=== PATIENT | female | born 1955 | race Caucasian/White ===

== ENCOUNTER 2021-08-16 16:37 | Inpatient (IN) | payer OTHER ==
[~2021-08-16] VITALS: Ht 167.6 cm; Wt 122.9 kg
[2021-08-17 20:45] VITALS: BP 133/80
--- NOTE | 2021-08-17 21:48 | NUR ---
Pt admitted to unit from ED at 1999 this shift. Pt was brought to unit on a gurney and ambulated with assistance from gurney to bed. Pt ambulates ad baldemar but states that she usually uses a walker. Pt is being involuntarily admitted to unit for bipolar with sam without psychotic features. Documentation filed et pt was given a copy of Notice of Rights of Involuntary Patient which was placed in her new admission folder after her rights were read to her verbatim. Pt is ambulatory, continent of bowel et bladder, et oriented X3 at present time. Pt denies SI/HI at present time. Pt states that she has to have her cell phone so that she can call her fiance in [place] to discuss the detective investigator that they have hired. Pt was informed that she would not be allowed to have her cell phone while on the unit. VSWNL. Health assessment with no abnormalities noted at present time. Hospitalist SHEEP FARMER notified of pt admission to unit via message left on voicemail. Psych SHEEP FARMER notified of pt admission to unit, orders received, et entered into system. Pt currently socializing with peers in dayroom watching TV. Will continue to monitor per unit protocol.
[2021-08-18 02:46] LABS: CHOLESTEROL 135 mg/dL (<200); HDL CHOLESTEROL 49 mg/dL (>40); LDL CHOLESTEROL 64 mg/dL (<100); TC:HDL 2.8 Ratio (Not establshd); TRIGLYCERIDE 111 mg/dL (<150); VLDL 22 mg/dL (<40)
[2021-08-18 03:09] LABS: SERUM ASSESSMENT Clear
--- NOTE | 2021-08-18 05:31 | NUR ---
Pt continues to have various somatic complaints. Pt states that she was in hospital in [facility] for a heart attack et c/o chest pain several times during shift. VSWNL. Blood pressure stable et WNL. Informed pt that VSWNL et cardiac auscultation reveals no anomalies present. Informed pt that hospital record review reveals that cardiac stress test was found to be normal et no sign of heart attack was found in records. Pt was incredulous that her "heart attack" was not in her records. Pt states that she was told that she had a heart attack. Pt also states that she has various spinal fractures that cause her severe pain et wants to discuss narcotic pain relievers with physician. Pt questioned why she was being placed on a psychiatric hold et this nurse explained that she has been deemed a danger to herself due to delusional thought process of fiance being a "seal" and part of the team that "captured [employer]". Pt was told that records showed that she had also expressed that she had told hospital staff that she had a 4 month old child that she had to get home to. Pt denies all statements at this time. Reassured pt that she would have a chance to discuss her case with the physician when she was assessed on Thursday. Pt verbalized understanding of her rights. Will continue to monitor per unit protocol.
[2021-08-18 10:30] VITALS: BP 133/80
[2021-08-18 10:57] LABS: HEMATOCRIT 37.2 % (37.0-47.0); HEMOGLOBIN 12.5 gm/dL (12.0-15.0); MCH 31.3 pg (26.0-34.0); MCHC 33.7 g/dL (28.0-37.0); RDW 13.5 % (10.5-14.5); WBC 6.9 thou/uL (4.0-11.0)
[2021-08-18 11:26] LABS: CALCIUM 9.2 mg/dL (8.5-10.1); POTASSIUM 3.7 mmol/L (3.5-5.1)
--- NOTE | 2021-08-18 12:53 | NUR ---
PATIENT CARE ASSUMED AT 0700 - MET WITH NURSE PRACTIONER EARLIER IN HER ROOM. ACKNOWLEDGED PATIENT ONCE IN DINING VELAZQUEZ. PATIET ADVISED PEER SHE HAD BEEN HERE SIX MONTH WHEN QUESTIONED. ADVISED PATIENT SHE ONLY ARRIVED NIGHT BEFORE TO OUR FACILITY. " LAUGHED AND STATED " OH I THOUGHT SHE MEANT IN [place], WHERE I LIVED." PATIENT PROCEEDED TO ADVISE THIS HAND CLOTH EXAMINER OF HER MULTIPLE FRACTURES IN HER SPINE, SPINAL STENOSIS, HEART ATTACK AND ARTHRITIC PAIN ALL OVER HER BODY. STATED TYLENOL INEFFECTIVE - DR. REDDY WAS HERE AND SPOKE WITH PATIENT WELL AND ADVISED WOULD TRY ONE TIME DOSE OF PERCOCET. EXPLAINED THAT DR. PARKER WOULD HAVE TO ADDRESS HER PAIN MEDICATIONS AND DISCUSS WHEN THEY MEET. PATIENT VITALS WNL. APPLIED LIDODERME PATCH TO BACK AT 1300 AND GIVEN OXYCODONE - APAP 7.5-325 ONETIME DOSE TABLET ORDERED BY DR. REDDY. PATIENT HAS BEEN UP IN DINING VELAZQUEZ. DISATISFIED WITH MEALS OFFERED DUE TO CARB CONTROL DIET. PATIENT PARTICIPATED IN GROUP ACTIVITY. HAS HAD BACK DISCOMFORT MOST OF THE MORNING. WILL CONTINUE TO MONITOR PATIENT FOR SAFETY AND ADDRESS ANY CONCERNS OR NEEDS ACCORDINGLY.
[2021-08-18 19:33] VITALS: BP 145/85
[2021-08-18 20:20] VITALS: BP 145/85
--- NOTE | 2021-08-18 21:51 | NUR ---
PATIENT SAT OUT IN DINING ROOM THIS EVENING VISITING WITH OTHER FEMALE PATIENTS. SHE WAS CALM AND COOPERATIVE. SHE DID NOT SEEM TO BE IN PAIN AND WAS LAUGHING AND SMILING. WHEN ASKED IF SHE WAS HAVING ANY PAIN SHE THEN BEGAN WITH BACK PAIN AND THEN C/O PAIN THROUGHOUT HER BODY. ONE PATIENT EVEN MENTIONED"I DID NOT KNOW YOU HAD PAIN ISSUES. YOU NEVER COMPLAIN ABOUT IT AT ALL." PATIENT IS USED TO TAKING PERCOCET FOR HER PAIN AND IT HAS NOT BEEN PRESCRIBED HERE. SHE WAS GIVEN TYLENOL 650MG PO AT THIS TIME D/T TOO EARLY TO GIVE HER IBUPROFEN. PATIENT HAD HS SNACK OF ICECREAM TONIGHT. HER GLUCOSE WAS 125. NO INSULIN GIVEN. PATIENT WAS UP WITH WALKER AND WENT TO BED ON HER OWN. SHE IS INDEPENDENT WITH CARES. DENIES SI/HI/AVH. SHE DOES LIKE TO TALK AND BE THE LIFE OF THE CONSTITUTION PARTY. SHE WAS TRYING TO ANSWER FOR OTHER PATIENTS WHEN THEY WERE ASKED QUESTIONS. SHE WOULD ALSO DIRECT PATIENTS TO TELL THIS NURSE THINGS THAT SHE WAS TOLD BY THEM, IN WHICH THEY SAID WAS NOTHING OR DID NOT WISH TO SHARE AGAIN. PT IN ROOM RESTING AT THIS TIME. ROUTINE ROUNDS TO ASSESS SAFETY AND STATUS OF PATIENT.
[2021-08-19 03:05] LABS: GLYCOHEMOGLOBIN (HGB A1C) 5.8 % (4.8-5.6)
[2021-08-19 09:34] VITALS: BP 125/72
--- NOTE | 2021-08-19 11:26 | NUR ---
DID WITHDRAW TO ROOM SHORTLY AFTER COMPLETION OF AM GROUP WITH REPORTED LOW BACK PAIN RATED A 8-9 ON NUMERIC SCALE. IS NOTED TO BE GRIMACING WITH MOVEMEMENT AND RUCCING LOW BACK. STATES SHE TAKES PERCOCET AT HOME BUT MD HERE WON'T ORDER IT. DID COMLY WITH LIDIDERM PATCH AND IBUPROFEN ADMINISTERED AT 1100-600MG PO PRN WITH NO RELEIF REPORTED-BACK PAIN CONTINUES TO BE A 8 ON 1-10 SCALE. APPETIE IS GOOD. TAKES MES WELL. GAIT STEADY WITH ASSISTIVE DEVICES. NO DELUSIONAL STATEMENTS NOTED OR REPORTED. NO A/V HALLUCINATIONS NOTED/REPORTED
--- NOTE | 2021-08-19 13:23 | NUR ---
New admit to [facility] with bipolar and sam, psychosis. Hx DM, and currently on lipitor, insulin, MVI, cholecalcipherol, calcium carbonate, and vitamin C. Carb control diet order, A1C is wnl, as well as lipids. Vitamin D level pending. Eating 75-100% meals, wt extreme class III obesity, BMI 43.8. Attempted interview however pt in group session at this time. Documentation notes reviewed and notes of pt not liking carb controlled diet and has verbalized wt gain. Will follow up at later date speak with pt when available. Otherwise presents low nutrition risk
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
--- NOTE | 2021-08-19 17:40 | NUR ---
DOES REPORT IMPROVEMENT IN LOW BACK PAIN AFTER ADMINISTRATION OF PRN PERCOCET 2 TABS AT 1450-STATES PAIN WENT FROM A 9 TO "ABOUT O 30R4" AT 1600. HAS BEEN VISIBLE IM DAYROOM INTERACTING WITH FEMALE PEER AND ATTENDING SCHEDULED GROUPS. DR CHEUNG CONTACTED AND 0RDER RECEOVED TO DC ACCUCHECKS PER PT REQUEST - INFORMED OF HGBAIC IN ADDITION TO RECENT POC GLUCOSE SINCE ADMIT
--- NOTE | 2021-08-19 17:46 | NUR ---
YASMANI and Dr. Gibbs met with the Pt. Pt was oriented x4, denied SI/HI, denied VH/AH. Pt had concerns about pain management medications. 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 It was agreed that Pt would discharge on 08/20/2021. The Pt stated she is willing to participate in outpatient mental health services with [facility]. Pt reported completing an intake appointment with [facility] some time back. Pt again stated she would like an appointment with Dr. Irma Glasgow. Pt had no other concerns during this meeting. YASMANI was able to get the Pt an appointment at [facility] with Dr. Peggy Glass for psychiatriy 10/02/2021 @ 4300. YASMANI attempted to schedule an appointment with Dr. Glasgow. Dr. Glasgow's office informed the Pt had been flagged and the doctor will not see this Pt. YASMANI informed Pt of this information and offered to schedule with a different clinic. Pt refused stating she would like to call Dr. Glasgow's office concerning the matter. YASMANI provide Pt with the phone number to call. Pt will discharge home 08/20/2021 @1300 via taxi
[2021-08-19 19:50] VITALS: BP 142/78
[2021-08-19 20:10] VITALS: BP 142/78
--- NOTE | 2021-08-19 22:05 | NUR ---
PATIENT HAS BEEN SITTING IN THE DINING ROOM WATCHING TV AND VISITING WITH OTHER FEMALE PATIENTS. SHE HAS BEEN LESS INTRUSIVE IN CONVERSATION AND HAS BEEN MORE APPROPRIATED TONIGHT. SHE HAS TAKEN HER MEDS WHOLE WITH WATER AND HAD PERCOCET FOR BACK PAIN. SHE STATES THAT SHE FEELS SHE IS NOT WALKING WELL SHE DID WHEN SHE CAME IN AND FEELS MORE STIFF. ENCOURAGED HER TO TRY AND WALK THE HALLS MORE. EXPLAINED SHE HAS BEEN SITTING ALOT SINCE SHE HAS BEEN HERE AND IT WILL TAKE TIME TO REBUILD HER STAMINA. SHE HAD HS SNACK. PATIENT DENIES SI/HI/AVH. ROUTINE ROUNDS TO ASSESS SAFETY AND STATUS OF PATIENT.
--- NOTE | 2021-08-20 05:08 | NUR ---
PATIENT AWOKE AND REQUESTED MED FOR SLEEP. SHE REQUESTED CLONAZEPAM 1MG PO AND I ALSO GAVE HER TYLENOL 65O MG PO TO HELP HER REST EASIER AND CALM ANY GENERAL ACHES. SHE DENIES PAIN. PATIENT STILL UNABLE TO SLEEP MUCH. SHE IS DISCHARGING TODAY AND I THINK SHE IS EXCITED ABOUT GOING HOME. PATIENT WAS SWABBED FOR COVID 19 PCR LABWORK THIS MORNING. CONTINUING TO MONITOR.
[2021-08-20 07:00] VITALS: BP 118/66
[2021-08-20] MEDS ORDERED: CLARITIN10 M2 PO (09:16)
[2021-08-20] MEDS ORDERED: LIPITOR 20 MG T20 M1 PO (09:17)
[2021-08-20] MEDS ORDERED: NICOTINE1 EACH TRANSDERM (09:17)
[2021-08-20] MEDS ORDERED: CALAN SR240 MG PO (09:18)
[2021-08-20] MEDS ORDERED: PERCOCET PO (09:19)
[2021-08-20] MEDS ORDERED: TRAZODONE HCL50 MG PO (09:20)
[2021-08-20] MEDS ORDERED: NEURONTIN 400M400 M2 PO (09:20)
[2021-08-20] MEDS ORDERED: CALTRATE-600 W1 EACH PO (09:21)
[2021-08-20] MEDS ORDERED: PEPCID20 MG PO (09:21)
[2021-08-20] MEDS ORDERED: CARAFATE 1 GM TA1 G1 PO (09:22)
[2021-08-20] MEDS ORDERED: VITAMIN C250 MG PO (09:25)
[2021-08-20] MEDS ORDERED: SYNTHROID100 MC1 PO (09:25)
[2021-08-20] MEDS ORDERED: A THRU Z ADVAN1 EAC1 PO (09:27)
[2021-08-20] MEDS ORDERED: VITAMIN D325 MC2 PO (09:27)
[2021-08-20] MEDS ORDERED: MELATONIN5 M1 PO (09:29)
[2021-08-20] MEDS ORDERED: PT HOME MEDICATION MISCELL (09:29)
[2021-08-20 10:00] VITALS: BP 118/66
[2021-08-20 12:27] VITALS: BP 118/66
--- NOTE | 2021-08-20 13:12 | NUR ---
PATIENT DISCHARGED AT 12:55 - ALL BELONGINGS REVIEWED AND ACCOUNTED FOR BOTH FROM UNIT AND SECURITY INTAKE. PATIENT HAD ALL HER MORNING MEDICATIONS AND WAS ALERT AND ORIENTED X 4 ON DISCHARGE. TRANSPORTED BY CAB TO HOME ADDRESS. PAPERWORK REVIEWED WITH PATIENT AND ESCORTED DOWN BY STAFF BY WHEELCHAIR.
--- NOTE | 2021-08-22 22:28 | D ---
[facility] [place] [address] DISCHARGE SUMMARY Name: VANESSA CRUZ CHINMAY Room #: 527B-B [facility] IN M.R.#: [id number] Admission: 08/17/21 Attend Phys: Buddy Colin DO Discharge: 08/20/21 Date of : 55 Report #: [id number] THIS REPORT FOR: cc: FAM - Family physician unknown FAM - Family physician unknown Buddy Colin DO ~ DATE OF SERVICE: 08/20/2021 INPATIENT PSYCHIATRIC DISCHARGE SUMMARY ATTENDING PSYCHIATRIST: Buddy Colin D.O. [facility]: Edgard Liu M.D. DISCHARGE DIAGNOSIS: Unspecified psychosis, resolved. No indication for antipsychotic therapy. MEDICAL COMORBIDITIES: Include morbid obesity, osteoarthritic pain requiring narcotic therapy, hypertension, hypothyroidism. She does have an abnormally low TSH, but free T4 is normal. Recheck TSH in 6 weeks. History of diabetes mellitus type 2, but her sugars are euglycemic this admission, hyperlipidemia. The patient is discharging to her friend's or roommate's home where she is her caregiver in exchange for having a place to live. The patient does not need to establish psychiatric care, but if she feels necessary in the future, being established with [facility] would be appropriate. Restart for outpatient care. The patient states aftercare problems where she does not have a primary care physician. She had two different practices. She requested referral to a PCP who was unwilling to accept her. It was suggested that the patient establish with [facility], which is near where she lives. Diet: Heart Healthy activity level as tolerated, no alcohol, no illicit drugs DISCHARGE MEDICATIONS: The patient is being discharged on a strictly limited prescription of narcotics that is #30 5/325 Percocets. Additional medications are trazodone 150 mg at bedtime for sleep, famotidine 20 mg daily for GERD, atorvastatin 20 mg oral daily for hyperlipidemia. She is also on verapamil 240 mg daily for hypertension 30-day script given and gabapentin 800 mg 3 times a day for pain, 1000 International Units daily of vitamin D, calcium carbonate 500 mg daily, vitamin C 250 mg daily, Carafate 1 g a.c. and at bedtime gave her a 14-day prescription for this and levothyroxine currently 300 mcg daily. LABORATORY DATA: Significant laboratories on this admission. Hematology on 08/18, white count 6.9, H and H 12.5 and 37.2, platelet count 242. Chemistries: Sodium 136, potassium 3.7, chloride 102, bicarbonate 28, anion gap 6, BUN 30, [address] [address] DISCHARGE SUMMARY Name: VANESSA CRUZ [facility] Room #: 527B-B DIS IN M.R.#: [id number] Admission: 08/17/21 Attend Phys: Buddy Colin DO Discharge: 08/20/21 Date of : 55 Report #: [id number] creatinine 1.0, estimated GFR 55. A1c is 5.8, calcium 9.2, magnesium 2.0. Triglycerides 111, cholesterol 135, LDL 64, HDL 49, B12 of 664. Vitamin D slightly low at 28.1, we did not begin any replacement as she is already taking. TSH normal at 1.258, free T4 of 1.2. COVID-19 PCR was negative on 08/17 and 08/20. No radiology done on this admission. REASON FOR ADMISSION: Back on 08/17 or so, a 66-year-old morbidly obese female sent in to [facility] from [facility]. Apparently, she states she was sent to us due to a bad dream. There was concern that the patient was manic- notes stated she was bizarre, rambling and far tangential, concern for bipolar 1 disorder with psychosis. HOSPITAL COURSE: The patient was admitted to Geriatric Psychiatry Unit. The patient was enthusiastic, fully oriented and her speech may have been a bit hyperverbal, but certainly not qualifying for bipolar 1 and really did not have evidence for bipolar 2. Apparently, her and her roommates are connected on Facebook, on the internet, and the roommate caregiver. It did come out she had a non-ST elevation MA, but she was treated for at [facility], so her cardiovascular risk factors where a stress level needs to be addressed. I discussed with the patient that she clearly cannot take care of others if she does not take care of herself first. The patient did acknowledge recent health and that was a wakeup call. CONDITION AT DISCHARGE: Stable, not suicidal or homicidal, fully oriented. PHYSICAL EXAMINATION: VITAL SIGNS: Weight is 122.924 kilograms, temperature 36.5, pulse 70, respirations 16, BP 118/62, O2 sat 97%. MUSCULOSKELETAL: Assisted gait with walker. MENTAL STATUS EXAMINATION: This is a well-developed, fairly dressed, morbidly obese female. Attention and concentration intact. Speech: Abnormal rate, normal tone and volume. Thought process: Linear and goal oriented. Thought content, focused on discharge, Denied suicidal or homicidal ideation, auditory or visual type hallucinations, hopeless, helplessness. Mood and affect are okay, congruent, euthymic, broad range. Memory not formally tested. Insight and judgment fair. Fund of knowledge above average. [facility] [address] [place] [address] DISCHARGE SUMMARY Name: VANESSA CRUZ CHINMAY Room #: 527B-B DIS IN M.R.#: [id number] Admission: 08/17/21 Attend Phys: Buddy Colin DO Discharge: 08/20/21 Date of : 55 Report #: [id number] PROGNOSIS: For this patient is fair if she addresses her health concerns, if not guarded for sure. <ELECTRONICALLY SIGNED> By: Buddy Colin DO 08/22/21 2228 11 55 Buddy Colin DO /nt
== END 2021-08-20 12:55 | disposition home or self-care (01) | DRG 885 ==
LOC: SBH
PROVIDERS: Hospitalist; Internal Medicine; Nurse Practitioner Psychiatric/Mental Health; ADMIT Psychiatry & Neurology Psychiatry; ATTEND Psychiatry & Neurology Psychiatry
DX: F31.2 Bipolar disorder, current episode manic severe with psychotic features (principal); E11.9 Type 2 diabetes mellitus without complications; I10 Essential (primary) hypertension; K21.9 Gastro-esophageal reflux disease without esophagitis; E03.9 Hypothyroidism, unspecified; M19.90 Unspecified osteoarthritis, unspecified site; Z20.822 Contact with and (suspected) exposure to COVID-19; E78.5 Hyperlipidemia, unspecified; Z88.6 Allergy status to analgesic agent; Z88.8 Allergy status to other drugs, medicaments and biological substances; Z81.1 Family history of alcohol abuse and dependence
CPT/HCPCS: 10880

== ENCOUNTER 2021-08-17 15:01 | Emergency (ER) | payer OTHER ==
[~2021-08-17] VITALS: Ht 167.6 cm; Wt 99.8 kg
[2021-08-17 19:55] VITALS: BP 117/76
== END 2021-08-17 19:56 ==
LOC: ER 15:01
PROVIDERS: Physician Assistant
DX: Z02.9 Encounter for administrative examinations, unspecified (principal); Z20.822 Contact with and (suspected) exposure to COVID-19; M19.90 Unspecified osteoarthritis, unspecified site; I10 Essential (primary) hypertension; E11.9 Type 2 diabetes mellitus without complications; K21.9 Gastro-esophageal reflux disease without esophagitis; E03.9 Hypothyroidism, unspecified; Z88.8 Allergy status to other drugs, medicaments and biological substances; Z88.6 Allergy status to analgesic agent; Z88.5 Allergy status to narcotic agent